=== PATIENT | female | born 1985 | race Caucasian/White ===

== ENCOUNTER 2020-10-16 18:02 | Observation (INO) ==
[2020-10-16] MEDS ORDERED: Ondansetron 4 mg VIAL 2 MG/ML 2 ml VIAL IV PRN (20:41)
[2020-10-16] MEDS ORDERED: NS 0.9% 1000 ml BAG 1,000 ML IV SCH (20:45)
[2020-10-16] MEDS: fentaNYL 100 mcg/2 ml 50 MCG/ML VIAL IV SLOW PU PRN (21:26)
[2020-10-17] MEDS: fentaNYL 100 mcg/2 ml 50 MCG/ML VIAL IV SLOW PU PRN ×2 (01:40→05:33)
[2020-10-17 03:46] VITALS: BP 118/60
== END 2020-10-17 06:30 | disposition home or self-care (01) ==
LOC: ED 18:02 → MED 18:02 → MERGE 20:42 → MED 10-17 02:02
PROVIDERS: ADMIT Internal Medicine; ATTEND Internal Medicine

== ENCOUNTER 2024-08-07 11:05 | Inpatient (IN) ==
[2024-08-07 11:55] LABS: Hemoglobin 9.9 g/dL (11.5-14.3); Mean Corpuscular Hemoglobin 25.4 pg (27-33); Mean Corpuscular Hgb Conc 34.3 g/dL (31-36); Mean Corpuscular Volume 74.2 fL (80-97); Mean Platelet Volume 7.8 fL (7.5-11.2); Platelet Count 598 10^3/uL (150-450); Red Cell Distribution Width 15.7 % (12-17); White Blood Count 12.7 10^3/uL (3.8-11.8)
[2024-08-07 12:13] LABS: High Sens Troponin Baseline 6 pg/mL (<15)
[2024-08-07] MEDS ORDERED: Lidocaine 2.5%/Prilocain 2.5% 5 GM TUBE ONE (12:32)
[2024-08-07 12:36] LABS: ALT 338 U/L (7-52); Albumin 3.4 g/dL (3.2-5.2); Albumin/Globulin Ratio 0.9 (1-3); Alkaline Phosphatase 394 U/L (35-149); Anion Gap 10 mmol/L (2-16); Blood Urea Nitrogen 7 mg/dL (6-24); CO2 Carbon Dioxide 23 mmol/L (22-32); Calcium 8.3 mg/dL (8.6-10.3); Chloride 99 mmol/L (101-111); Creatinine, Serum 0.43 mg/dL (0.51-0.95); Globulin 3.7 g/dL (2-4); Glucose 110 mg/dL (70-100); Sodium 132 mmol/L (135-145); Total Bilirubin 0.7 mg/dL (0.2-1.0); Total Protein 7.1 g/dL (6.4-8.9); eGFR CKD-EPI 126.8 (>60)
[2024-08-07] MEDS: Lactated Ringers 1000 ml BAG 1,000 ML IV ONE (12:46)
[2024-08-07] MEDS: methylPREDNISolone SOD SUCC 125 mg 2 ML VIAL IV ONE (12:47)
[2024-08-07 12:52] LABS: INR 1.37 (0.85-1.14)
[2024-08-07 12:55] LABS: ABS Eosinophils 0.1 10^3/uL (0.0-0.5); ABS Lymphocytes 1.9 10^3/uL (1.0-4.8); ABS Monocytes 1.1 10^3/uL (0.0-0.9); ABS Neutrophils 9.6 10^3/uL (1.5-7.6); Anisocytosis 1+; Eosinophil % 0.4 %; Lymphocyte % 14.7 %; Microcytosis 1+
[2024-08-07] MEDS: Ondansetron 4 mg VIAL 2 MG/ML 2 ml VIAL IV ONE (13:10)
[2024-08-07 13:38] LABS: Potassium Redraw 3.7 mmol/L (3.5-5.0)
[2024-08-07] MEDS: Iohexol 350 (CONTRAST) 500 ML MDV IV ONE (14:05)
[2024-08-07] MEDS ORDERED: Sulfur Hexaflouride MICROSPHR 25 MG VIAL IV PRN (14:30)
[2024-08-07 18:23] LABS: C Reactive Protein 261.41 mg/L (<8.01)
[2024-08-07 19:26] LABS: Immature Retic Fraction 0.34
[2024-08-07 19:37] LABS: Erythrocyte Sed Rate 76 mm/Hr (0-19)
[2024-08-07 19:42] LABS: Urine Appearance Clear; Urine Bilirubin Negative (Negative); Urine Blood 1+ (Negative); Urine Color Light-Yellow; Urine Glucose Negative (Negative); Urine Ketones 1+ (Negative); Urine Nitrite Negative (Negative); Urine Protein Negative (Negative); Urine Specific Gravity 1.009 (1.002-1.030); Urine Urobilinogen Negative (Negative)
[2024-08-07 20:02] LABS: Urine Bacteria Absent /HPF (Absent); Urine Red Blood Cell 2+(6-10/hpf) /HPF (0-Trace); Urine Squamous Epithelial Cell Present /HPF (Absent); Urine White Blood Cell Trace(0-5/hpf) /HPF (0-Trace)
[2024-08-07 20:04] LABS: % Iron Saturation 7 % (15-55); .Transferrin 204 mg/dL (203-362); Iron < 20 ug/dL (50-212); LDH 309 U/L (140-271); Total Iron Binding Capacity 286 mcg/dL (250-450); Transferrin 204 mg/dL (203-362); Unsaturated Iron Binding 266 ug/dL
[2024-08-07 20:08] LABS: Corrected Retic Count 0.7 % (0.5-2.2); Hematocrit for Retic CNT 30.3 % (35-45); RBC Retic Count 4.09 10^6/ul (3.63-4.92)
[2024-08-07 20:25] LABS: Ferritin 289.9 ng/mL (11-307)
[2024-08-07 20:26] LABS: HIV 4th Generation Nonreactive (Nonreactive)
[2024-08-07 20:28] LABS: Folate > 20.00 ng/mL (5.90-24.80)
[2024-08-07 20:29] LABS: Vitamin B12 423 pg/mL (180-914)
[2024-08-07 20:41] LABS: Hepatitis B Surface Antigen Nonreactive (Nonreactive)
[2024-08-07 20:46] LABS: Hepatitis A Ab IgM Negative (Negative)
[2024-08-07 20:47] LABS: Hepatitis B Core IgM Nonreactive (Nonreactive)
[2024-08-07 20:59] LABS: Hepatitis C Antibody Negative (Negative)
[2024-08-08] MEDS: cefTRIAXone 1 gm/50 mL D5W 1 GM/50 ML BAG IV SCH (00:04)
[2024-08-08 04:37] LABS: ABS Basophils 0.1 10^3/uL (0.0-0.1); ABS Lymphocytes 1.4 10^3/uL (1.0-4.8); ABS Monocytes 1.1 10^3/uL (0.0-0.9); Hematocrit 30.3 % (35-45); Hemoglobin 9.9 g/dL (11.5-14.3); Lymphocyte % 8.3 %; Mean Corpuscular Hemoglobin 24.2 pg (27-33); Mean Corpuscular Hgb Conc 32.7 g/dL (31-36); Mean Platelet Volume 7.7 fL (7.5-11.2); Platelet Count 665 10^3/uL (150-450); Red Blood Count 4.09 10^6/uL (3.63-4.92); Red Cell Distribution Width 15.5 % (12-17); White Blood Count 16.5 10^3/uL (3.8-11.8)
[2024-08-08 05:11] LABS: Albumin 3.3 g/dL (3.2-5.2); Calcium 8.9 mg/dL (8.6-10.3); Creatinine, Serum 0.43 mg/dL (0.51-0.95); Globulin 3.4 g/dL (2-4); Magnesium 2.2 mg/dL (1.9-2.7); Potassium 4.1 mmol/L (3.5-5.0); Total Bilirubin 0.4 mg/dL (0.2-1.0); Total Protein 6.7 g/dL (6.4-8.9); eGFR CKD-EPI 126.8 (>60)
[2024-08-08] MEDS ORDERED: Sulfur Hexaflouride MICROSPHR 25 MG VIAL IV PRN ×2 (10:30→19:40)
[2024-08-08 15:58] LABS: TSH Ultra Thyroid Stim Horm 0.37 mcIU/mL (0.34-5.60)
[2024-08-08] MEDS: Enoxaparin 40 MG/0.4 ML SYR SUBCUT SCH (18:20)
[2024-08-08] MEDS: Acetaminophen IV 1 GM/100ML 1,000 MG/100 ML BAG IV PRN (20:30)
[2024-08-08] MEDS: Lactated Ringers 1000 ml BAG 500 ML IV ONE (21:32)
[2024-08-09 06:32] LABS: Albumin 3.1 g/dL (3.2-5.2); Calcium 8.4 mg/dL (8.6-10.3); Creatinine, Serum 0.47 mg/dL (0.51-0.95); Globulin 3.2 g/dL (2-4); Magnesium 2.1 mg/dL (1.9-2.7); Potassium 4.6 mmol/L (3.5-5.0); Total Bilirubin 0.3 mg/dL (0.2-1.0); Total Protein 6.3 g/dL (6.4-8.9); eGFR CKD-EPI 124.1 (>60)
[2024-08-09 06:42] LABS: Hematocrit 30.1 % (35-45); Mean Corpuscular Hemoglobin 24.4 pg (27-33); Mean Corpuscular Hgb Conc 33.1 g/dL (31-36); Mean Corpuscular Volume 73.8 fL (80-97); Mean Platelet Volume 7.8 fL (7.5-11.2); Platelet Count 787 10^3/uL (150-450); Red Blood Count 4.07 10^6/uL (3.63-4.92); Red Cell Distribution Width 15.4 % (12-17); White Blood Count 17.3 10^3/uL (3.8-11.8)
[2024-08-09 07:34] LABS: ABS Basophils 0.2 10^3/uL (0.0-0.1); ABS Eosinophils 0.1 10^3/uL (0.0-0.5); ABS Lymphocytes 4.3 10^3/uL (1.0-4.8); ABS Monocytes 0.8 10^3/uL (0.0-0.9); ABS Neutrophils 11.9 10^3/uL (1.5-7.6); ABS Nucleated RBC 0.01 10^3/ul; Anisocytosis 1+; Eosinophil % 0.3 %; Microcytosis 2+; Nucleated Red Blood Cells % 0.1 %/100WBC (0.0-0.8)
[2024-08-09] MEDS: Lidocaine PATCH 5% PATCH TRANSDERM ONE (13:06)
[2024-08-09] MEDS ORDERED: PAIN RELIEVING RUB (MENTHOL/SALICYLATE) 1 APPLIC TUBE TOPICAL PRN (21:34)
[2024-08-10 08:08] LABS: EBV Capsid Ag IgG Ab Positive (Negative); EBV Capsid Ag IgM Ab Negative (Negative); Epstein-Barr Nuclear Antigen Positive (Negative)
[2024-08-10 14:01] LABS: Cytomegalovirus IgG Antibody Negative (Negative)
[2024-08-10 17:19] LABS: CMV DNA DETECT/QT, P Undetected IU/mL (Undetected)
[2024-08-11 10:15] VITALS: BP 126/70
[2024-08-13 13:28] LABS: Parvovirus (B19) IgG Antibody Positive (Negative); Parvovirus (B19) IgM Antibody Negative (Negative)
== END 2024-08-11 12:12 | disposition home or self-care (01) | DRG 207 ==
LOC: ED 11:05 → EDHOLD 16:15 → SUATTDRO 16:15 → ICU 20:06 → MEDTELE 08-09 14:08
PROVIDERS: ADMIT Internal Medicine Pulmonary Disease; ATTEND Internal Medicine